=== PATIENT | male | born 1955 | race Caucasian/White ===

== ENCOUNTER 2019-10-08 13:58 | Outpatient (CLI) | payer BC, SELFPAY ==
--- NOTE | 2019-10-08 14:07 | US_ITS ---
WS: [id number] RENAL ULTRASOUND REASON FOR EXAM: CHRONIC KIDNEY DZ STAGE 3 TECHNIQUE: Grayscale and Doppler ultrasound examination of the kidneys. FINDINGS: Right kidney: Right kidney measures 9.6 cm x 5.1 cm x 6.4 cm. Cortex measured 1.2 cm. Left kidney: Left kidney measures 10.5 cm x 4.3 cm x 6.3 cm. Cortex measured 1.0 cm. Both kidneys show normal appearance with no hydronephrosis or stones. The bladder is contracted a small prostate is seen. US/US renal BI* [id number] IMPRESSION: Normal appearance of both kidneys.
== END 2019-10-08 13:59 | disposition home or self-care (01) ==
PROVIDERS: Family Provider Electrodiagnostic Medicine; PCP Electrodiagnostic Medicine; Visit Provider Internal Medicine Nephrology
DX: N18.3 Chronic kidney disease, stage 3 (moderate) (principal)
CPT/HCPCS: 76770

== ENCOUNTER → 2020-06-04 10:52 | Outpatient (BNVA) | payer BC, SELFPAY | PROVIDERS: Family Provider Electrodiagnostic Medicine; PCP Electrodiagnostic Medicine; Visit Provider Electrodiagnostic Medicine | DX: Z01.812 Encounter for preprocedural laboratory examination (principal); Z20.828 Contact with and (suspected) exposure to other viral communicable diseases | CPT/HCPCS: 87635 ==

== ENCOUNTER 2020-06-20 13:33 | Emergency (ER) | payer BC, SELFPAY ==
[2020-06-20 13:38] VITALS: BP 83/52; PULSE 93; RESP 18; TEMP 36.3; O2SAT 98; BMI 28.5
--- NOTE | 2020-06-20 13:52 | XRR_ITS ---
PROCEDURE INFORMATION: Exam: XR Chest, 1 View Exam date and time: 06/20/2020 1:54 PM Age: 65 years old Clinical indication: Dyspnea; Additional info: Hypotension TECHNIQUE: Imaging protocol: XR of the chest Views: 1 view. COMPARISON: CR Chest 1 [place] [id number] 10/04/2016 9:30 AM FINDINGS: Lungs: Unremarkable. No consolidation. Pleural space: Unremarkable. No pleural effusion. No pneumothorax. Heart/Mediastinum: Unremarkable. No cardiomegaly. Bones/joints: Unremarkable. No interval change since prior XR/XR chest 1V portable [id number] IMPRESSION: No acute findings.
--- NOTE | 2020-06-20 13:53 | ECG_ITS ---
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1955 Requested By: Larisa Collier I Order Number: [id number] Phyllis MD: KENYON MCDONALD Measurements Intervals [place] Rate: 81 P: 67 MD: 186 QRS: -85 QRSD: 106 T: 91 QT: 397 QTc: 463 Interpretive Statements SINUS RHYTHM LOW QRS VOLTAGE IN EXTREMITY LEADS [QRS DEFLECTION < 0.5 mV IN LIMB LEADS] PATTERN CONSISTENT WITH PULMONARY DISEASE Compared to ECG 10/05/2016 05:54:49 Right-axis deviation no longer present Myocardial infarct finding no longer present Electronically Signed On 06-20-2020 18:02:23 CRYSTAL GROWER by KENYON MCDONALD [email or web address].[id number]
--- NOTE | 2020-06-20 13:54 | ED_ITS ---
HPI - General Adult General: Chief complaint: General Medical Stated complaint: LOW BP Time Seen by Provider: 06/20/20 13:45 Source: patient Mode of arrival: ambulatory Limitations: no limitations History of Present Illness: HPI narrative: Patient has had hives for about 3 days, mainly in his lower extremities that are very itchy. Today he went to the urgent care for that and when he was there he had a presyncopal episode. At that time he checked his blood pressure and he was hypotensive. He was therefore sent to the emergency department to be seen. Denies any chest pain, fever, shortness of breath. But he does endorse dizziness. He denies any sick contacts. He has a history of hypertension, coronary artery disease, stent placements, diabetes. Associated symptoms: Reports rash; Deny chest pain, confusion, cough, diaphoresis, decreased appetite, dyspnea, fevers/chills, headache(s), malaise, nausea, palpitations, seizures, short of breath, syncope, vomiting or weakness Review of Systems General: Reports: 10 or more systems reviewed and unremarkable except in HPI and below Const: Denies: malaise or diaphoresis Eyes: Denies: change in vision or blurry vision ENMT: Denies: throat pain, enlarged tonsils, odynophagia, hoarseness, mouth pain or swelling of lips/tongue Card: Denies: chest pain, palpitations or syncope Resp: Denies: dyspnea GI: Denies: nausea or vomiting : Denies: flank pain, dysuria, urinary frequency, urinary urgency or urinary hesitancy Musc: Denies: neck pain, back pain or extremity swelling Skin/Breast: Reports: rash Neuro: Denies: headache(s) or confusion Endo: Denies: polyuria, polydipsia or tired all the time [facility] ED PFSH: Medical History (Updated 06/20/20 @ 19:40 by Larisa Collier MD, [facility]) CHF (congestive heart failure) History of ST elevation myocardial infarction (STEMI) HTN (hypertension) Family History Father Heart disease Sister Heart disease Social History Smoking and tobacco status: never smoked Physical Exam Const: COMMON NORMALS: no acute distress, average body habitus, patient oriented x3, no limitations, healthy appearing, alert and well nourished Neck/C-Spine: COMMON NORMALS: no meningeal signs and no JVD Resp: COMMON NORMALS: normal respiratory effort, No retractions, No use of accessory muscles, clear to auscultation bilaterally and percussion normal AUSCULTATION: clear to auscultation bilaterally PERCUSSION: percussion normal Cardio: COMMON NORMALS: no JVD, regular rate, regular rhythm, S1 normal heart sound present, S2 normal heart sound present, No gallops present (Cardio), No clicks present (Cardio), No murmurs present (Cardio), No rub (Cardio) and Peripheral pulses 2+ throughout RATE: regular rate RHYTHM: regular rhythm HEART SOUNDS: S1 normal heart sound present and S2 normal heart sound present PERIPHERAL PULSES: Peripheral pulses 2+ throughout GI: COMMON NORMALS: Normal to inspection, nondistended, normoactive bowel sounds present, Soft to palpation, non-tender, No hepatosplenomegaly present, no masses and no bruits PALPATION: Yes Soft to palpation and Yes No hepatosplenomegaly present Extremity: COMMON NORMALS: normal to inspection, full ROM, capillary refill normal, no calf tenderness and no pedal edema Neuro: COMMON NORMALS: patient oriented x3 SENSORIUM/ORIENTATION: Yes alert MENINGEAL SIGNS: Yes no meningeal signs Skin: COMMON NORMALS: no wounds, turgor normal, no jaundice, no petechiae and no mottling GENERAL SKIN EXAM: turgor normal RASHES: rashes noted Urticarial rashes in his lower extremities bilaterally. Excoriation fulton noted also. Course Reevaluation(s): Reevaluation #1: Discussed his lab and imaging findings with him. Discussed that he is VQ scan was negative for PE. Most likely his hypotension is secondary to medications including metoprolol versus valsartan hydrochlorothiazide versus isosorbide. He is advised to reduce the dose of his metoprolol all to hold it until he sees his primary care provider on Monday. They voiced understanding and they are in agreement with the plan. Current blood pressure is 135/79. Time: 19:38 Vital Signs: Vital signs: Vital Signs Temperature 97.3 F L 06/20/20 13:38 Pulse Rate 83 06/20/20 16:06 Respiratory Rate 18 06/20/20 16:06 Blood Pressure 117/76 06/20/20 19:36 Pulse Oximetry 96 06/20/20 19:36 MDM - General Adult MDM Narrative: Medical decision making narrative: 65-year-old male who was sent to the emergency department due to hypotension. The patient was indeed hypotensive, however responded to a single fluid bolus. Patient is on multiple antihypertensives which may have contributed to his symptoms. Evaluation in the emergency department was unremarkable. He has chronic kidney disease He is troponin was elevated but he had a flat delta. Patient felt much better before discharge and he is advised to hold his metoprolol until he sees his primary care provider on Monday. Medical Records: Attestation: I reviewed the patient's medical records. Lab Data: Attestation: I reviewed the patient's lab results. Labs: Lab Results 06/20/20 06/20/20 06/20/20 Range/Units 13:54 13:54 13:54 WBC 6.8 (4.0-10.0) 10^3/ uL RBC 4.02 L (4.1-5.3) 10^6/u L Hgb 12.4 (11.7-16.6) g/dL Hct 38.0 L (42.0-52.0) % MCV 94.5 H (80-94) fL MCH 30.8 (28.0-34.0) pg MCHC 32.6 (30.0-36.0) g/dL RDW 12.0 L (12.1-15.1) % Plt Count 221 (130-400) 10^3/c mm MPV 12.0 H (7.4-10.4) fL Neut % (Auto) 48.3 % Lymph % (Auto) 42.6 % Bath % (Auto) 6.3 % Eos % (Auto) 1.9 % Baso % (Auto) 0.3 % Neut # (Auto) 3.28 (1.8-7.7) 10^3/u L Lymph # (Auto) 2.9 (0.8-4.8) 10^3/u L Bath # (Auto) 0.4 (0.2-0.9) 10^3/u L Eos # (Auto) 0.1 (0.0-0.8) 10^3/u L Baso # (Auto) 0.0 (0.0-0.1) 10^3/u L Nucleated RBC % (a uto) 0 % Nucleated RBCs # 0.0 /100WBC D-Dimer (0-0.59) ug/mIFE U Sodium 130 L (136-145) mmol/L Potassium 3.5 (3.5-5.1) mmol/L Chloride 87 L (98-107) mmol/L Carbon Dioxide 23 (22-29) mmol/L Anion Gap 23.5 H (5-19) BUN 38 H (8-23) mg/dL Creatinine 3.2 H (0.7-1.2) mg/dL GFR Calculation 19.5 L (90-130) mL/min Glucose 175 H (65-115) mg/dL Calculated Osmolal ity 283 L (285-295) mOsm/k g Lactate 2.9 H (0.5-2.2) mmol/L Calcium 9.1 (8.5-10.5) mg/dL Total Bilirubin 0.2 (0.15-1.2) mg/dL AST 57 H (0-40) U/L ALT 48 H (0-41) U/L Alkaline Phosphata se 73 (40-130) IU/L Creatine Kinase 162 (39-308) U/L Troponin T Baselin e (0-15) ng/L Troponin T 120 Min tlingit & haida (0-15) ng/L Delta Troponin T (0-10) ABS# C-Reactive Protein 42.1 H (0.0-4.9) mg/L NT-Pro-B Natriuret Pep (0-125) pg/mL Total Protein 7.4 (6.6-8.7) g/dL Albumin 4.2 (3.5-5.2) g/dL Globulin 3.2 (1.3-4.6) g/dL Procalcitonin 0.20 (0-0.5) ng/mL Urine Color (Yellow) Urine Appearance (CLEAR) Urine pH (5-7) Ur Specific Gravit y (1.005-1.030) Urine Protein (Negative) Urine Glucose (UA) (Normal) Urine Ketones (Negative) Urine Blood (Negative) Urine Nitrate (Negative) Urine Bilirubin (Negative) Urine Urobilinogen (Negative) mg/dL Ur Leukocyte Taryn ase (Negative) Urine RBC (0-2) /hpf Urine WBC (0-5) /hpf Ur Squamous Epith Cells (0-5) /hpf Amorphous Sediment /hpf Urine Bacteria (NONE) /hpf Hyaline Casts /lpf Fine Granular Cast s /lpf Urine Mucus /hpf Urine Sperm /hpf 06/20/20 06/20/20 06/20/20 Range/Units 13:54 13:54 13:54 WBC (4.0-10.0) 10^3/ uL RBC (4.1-5.3) 10^6/u L Hgb (11.7-16.6) g/dL Hct (42.0-52.0) % MCV (80-94) fL MCH (28.0-34.0) pg MCHC (30.0-36.0) g/dL RDW (12.1-15.1) % Plt Count (130-400) 10^3/c mm MPV (7.4-10.4) fL Neut % (Auto) % Lymph % (Auto) % Bath % (Auto) % Eos % (Auto) % Baso % (Auto) % Neut # (Auto) (1.8-7.7) 10^3/u L Lymph # (Auto) (0.8-4.8) 10^3/u L Bath # (Auto) (0.2-0.9) 10^3/u L Eos # (Auto) (0.0-0.8) 10^3/u L Baso # (Auto) (0.0-0.1) 10^3/u L Nucleated RBC % (a uto) % Nucleated RBCs # /100WBC D-Dimer 3.81 H (0-0.59) ug/mIFE U Sodium (136-145) mmol/L Potassium (3.5-5.1) mmol/L Chloride (98-107) mmol/L Carbon Dioxide (22-29) mmol/L Anion Gap (5-19) BUN (8-23) mg/dL Creatinine (0.7-1.2) mg/dL GFR Calculation (90-130) mL/min Glucose (65-115) mg/dL Calculated Osmolal ity (285-295) mOsm/k g Lactate (0.5-2.2) mmol/L Calcium (8.5-10.5) mg/dL Total Bilirubin (0.15-1.2) mg/dL AST (0-40) U/L ALT (0-41) U/L Alkaline Phosphata se (40-130) IU/L Creatine Kinase (39-308) U/L Troponin T Baselin e 48 H (0-15) ng/L Troponin T 120 Min tling[place] & haida (0-15) ng/L Delta Troponin T (0-10) ABS# C-Reactive Protein (0.0-4.9) mg/L NT-Pro-B Natriuret Pep (0-125) pg/mL Total Protein (6.6-8.7) g/dL Albumin (3.5-5.2) g/dL Globulin (1.3-4.6) g/dL Procalcitonin (0-0.5) ng/mL Urine Color Yellow (Yellow) Urine Appearance Hazy A (CLEAR) Urine pH 5 (5-7) Ur Specific Gravit y 1.020 (1.005-1.030) Urine Protein 1+ H (Negative) Urine Glucose (UA) Norm (Normal) Urine Ketones Negative (Negative) Urine Blood Neg (Negative) Urine Nitrate Negative (Negative) Urine Bilirubin Neg (Negative) Urine Urobilinogen Norm (Negative) mg/dL Ur Leukocyte Taryn ase Negative (Negative) Urine RBC None (0-2) /hpf Urine WBC 5-10 H (0-5) /hpf Ur Squamous Epith Cells 0-4 H (0-5) /hpf Amorphous Sediment 1+ /hpf Urine Bacteria Trace (NONE) /hpf Hyaline Casts 15-25 H /lpf Fine Granular Cast s 0-4 H /lpf Urine Mucus 1+ /hpf Urine Sperm 1+ /hpf 06/20/20 06/20/20 06/20/20 Range/Units 16:00 16:00 18:30 WBC (4.0-10.0) 10^3/ uL RBC (4.1-5.3) 10^6/u L Hgb (11.7-16.6) g/dL Hct (42.0-52.0) % MCV (80-94) fL MCH (28.0-34.0) pg MCHC (30.0-36.0) g/dL RDW (12.1-15.1) % Plt Count (130-400) 10^3/c mm MPV (7.4-10.4) fL Neut % (Auto) % Lymph % (Auto) % Bath % (Auto) % Eos % (Auto) % Baso % (Auto) % Neut # (Auto) (1.8-7.7) 10^3/u L Lymph # (Auto) (0.8-4.8) 10^3/u L Bath # (Auto) (0.2-0.9) 10^3/u L Eos # (Auto) (0.0-0.8) 10^3/u L Baso # (Auto) (0.0-0.1) 10^3/u L Nucleated RBC % (a uto) % Nucleated RBCs # /100WBC D-Dimer (0-0.59) ug/mIFE U Sodium (136-145) mmol/L Potassium (3.5-5.1) mmol/L Chloride (98-107) mmol/L Carbon Dioxide (22-29) mmol/L Anion Gap (5-19) BUN (8-23) mg/dL Creatinine (0.7-1.2) mg/dL GFR Calculation (90-130) mL/min Glucose (65-115) mg/dL Calculated Osmolal ity (285-295) mOsm/k g Lactate 1.2 (0.5-2.2) mmol/L Calcium (8.5-10.5) mg/dL Total Bilirubin (0.15-1.2) mg/dL AST (0-40) U/L ALT (0-41) U/L Alkaline Phosphata se (40-130) IU/L Creatine Kinase (39-308) U/L Troponin T Baselin e (0-15) ng/L Troponin T 120 Min tling[place] & haida 43.72 H (0-15) ng/L Delta Troponin T -4.28 L (0-10) ABS# C-Reactive Protein (0.0-4.9) mg/L NT-Pro-B Natriuret Pep 156 H (0-125) pg/mL Total Protein (6.6-8.7) g/dL Albumin (3.5-5.2) g/dL Globulin (1.3-4.6) g/dL Procalcitonin (0-0.5) ng/mL Urine Color (Yellow) Urine Appearance (CLEAR) Urine pH (5-7) Ur Specific Gravit y (1.005-1.030) Urine Protein (Negative) Urine Glucose (UA) (Normal) Urine Ketones (Negative) Urine Blood (Negative) Urine Nitrate (Negative) Urine Bilirubin (Negative) Urine Urobilinogen (Negative) mg/dL Ur Leukocyte Taryn ase (Negative) Urine RBC (0-2) /hpf Urine WBC (0-5) /hpf Ur Squamous Epith Cells (0-5) /hpf Amorphous Sediment /hpf Urine Bacteria (NONE) /hpf Hyaline Casts /lpf Fine Granular Cast s /lpf Urine Mucus /hpf Urine Sperm /hpf Imaging Data^: CXR: Attestation: I personally reviewed and interpreted this imaging study as follows: Radiologist's impression: [address] [address] XRay Report Signed Patient: Lyle Biswas #: [id number] : 4Acct#:[id number] Age/Sex: 65 / MADM Date: 06/20/20 Loc: ERRoom/Bed: Attending Dr: Ordering Provider/Ordering MD: Larisa Collier MD, [facility] Date of Service: 06/20/20 Procedure(s): XR chest 1V portable [id number] Accession Number(s): [id number] Report Number: [id number] PROCEDURE INFORMATION: Exam: XR Chest, 1 View Exam date and time: 06/20/2020 1:54 PM Age: 65 years old Clinical indication: Dyspnea; Additional info: Hypotension TECHNIQUE: Imaging protocol: XR of the chest Views: 1 view. COMPARISON: CR Chest 1 [place] [id number] 10/04/2016 9:30 AM FINDINGS: Lungs: Unremarkable. No consolidation. Pleural space: Unremarkable. No pleural effusion. No pneumothorax. Heart/Mediastinum: Unremarkable. No cardiomegaly. Bones/joints: Unremarkable. No interval change since prior XR/XR chest 1V portable [id number] IMPRESSION: No acute findings. Dictated By:Vahid Vaz Signed By:Kevin Vaz Date/Time:06/20/20 1528 DD/ 1526 Other Imaging: Radiologist's impression: [address] [place] [address] Nuclear Medicine Report Signed Patient: Lyle Biswas #: [id number] : 4Acct#:[id number] Age/Sex: 65 / MADM Date: 06/20/20 Loc: ERRoom/Bed: Attending Dr: Ordering Provider/Ordering MD: Larisa Collier MD, [facility] Date of Service: 06/20/20 Procedure(s): NM pul vent and perfus* [id number] Accession Number(s): [id number] Report Number: [id number] PROCEDURE INFORMATION: Exam: NM Lung Ventilation and Perfusion Imaging Exam date and time: 06/20/2020 6:35 PM Age: 65 years old Clinical indication: Shortness of breath; Patient HX: SOB, syncope; Additional info: SOB, hypotension TECHNIQUE: Imaging protocol: Nuclear pulmonary ventilation with aerosol or gas was performed followed by perfusion. Views: Ventilation acquired with multiple projections. Perfusion acquired with multiple projections. Radiopharmaceutical: 32 mCi DTPA Aersol (Tc-99m DTPA), Inhalation. 5.1 mCi Tc-99m MAA, IV. COMPARISON: CR (CHEST, ) 06/20/2020 2:02 PM FINDINGS: Ventilation: There some central aggregation of the radiotracer. No ventilation defects. Perfusion: Normal. No perfusion defects. NM/NM pul vent and perfus* [id number] IMPRESSION: Normal perfusion. No evidence of pulmonary embolism. Dictated By:Amada Camacho MD Signed By:Amada Camacho MDSigned Date/Time:06/20/201931 DD/ 29 EKG Data^: EKG 1: Attestation: I personally reviewed and interpreted this EKG as follows: EKG interpretation date: 06/20/20 EKG interpretation time: 14:34 Prior EKG tracings: not available for review Interpretation: Sinus rhythm. Heart rate [address] changes. Pattern consistent with pulmonary disease Computer generated interpretation: Chest X-Ray 06/20/20 13:52 IMPRESSION: No acute findings. Pulmonary Perfusion Imaging 06/20/20 18:13 IMPRESSION: Normal perfusion. No evidence of pulmonary embolism. EKG 2: Attestation: I personally reviewed and interpreted this EKG as follows: EKG interpretation date: 06/20/20 EKG interpretation time: 16:03 Prior EKG tracings: available for review Interpretation: Sinus rhythm. Heart rate 83 bpm. Pattern consistent pulmonary disease. Unchanged from earlier today. Computer generated interpretation: Chest X-Ray 06/20/20 13:52 IMPRESSION: No acute findings. Pulmonary Perfusion Imaging 06/20/20 18:13 IMPRESSION: Normal perfusion. No evidence of pulmonary embolism. Discharge Plan Discharge Patient Disposition: Home Clinical Impression: Acute hypotension Condition: Stable Prescriptions: Continued isosorbide mononitrate 30 mg tablet extended release 24 hr 30 mg PO BID Qty: 180 RF: 3 furosemide 40 mg tablet 40 mg PO DAILY Qty: 90 RF: 3 aspirin [Adult Low Dose Aspirin] 81 mg tablet,delayed release (DR/EC) 81 mg PO DAILY RF: 0 escitalopram oxalate [Lexapro] 10 mg tablet 10 mg PO DAILY RF: 0 metformin 1,000 mg tablet extended release 24hr 1,000 mg PO BID RF: 0 albuterol sulfate 90 mcg/actuation HFA aerosol inhaler 2 puff INHALATION Q6H PRN (Reason: Shortness Of Breath) RF: 0 clonazepam 0.5 mg tablet 0.5 mg PO BID RF: 0 clopidogrel 75 mg tablet 75 mg PO DAILY RF: 0 glimepiride 2 mg tablet 2 mg PO DAILY RF: 0 imipramine HCl 50 mg tablet 50 mg PO BID RF: 0 levothyroxine 75 mcg capsule 75 mcg PO DAILY RF: 0 montelukast 10 mg tablet 10 mg PO DAILY RF: 0 simvastatin 40 mg tablet 40 mg PO DAILY RF: 0 venlafaxine 75 mg tablet 75 mg PO DAILY RF: 0 valsartan-hydrochlorothiazide 320-25 mg tablet 0.5 tab PO DAILY Qty: 15 RF: 3 clindamycin HCl 300 mg Capsule 300 mg PO TID RF: 0 ergocalciferol (vitamin D2) 50,000 unit Tablet See Rx Instructions .ROUTE .COMPLEX RF: 0 Trulicity 0.75 mg/0.5 mL Pen Injector 0.75 mg SUBCUT Q7D RF: 0 Held metoprolol tartrate 50 mg tablet 75 mg PO BID Qty: 270 RF: 3 Hold Instructions: Hold until you see your primary care provider Discharge Orders: Discharge Order (Routine); Ordered 06/20/20 Ordered By: Larisa Collier Referrals: Kenyon Ramírez DO [Primary Care Provider] - 1-3 days Discharge Diet: Usual diet Discharge Activity: Increase activity as tolerated Patient Instructions: Hypotension (ED) Activity Restrictions/Additional Instructions: Return for any new or worsening symptoms. Follow-up with your primary care provider on Monday as you may need adjustment of your medicines. Hold your metoprolol until you see your doctor on Monday. Continue your other medications. Coding Level of Care Code ED Route Sales Representative for Chg Fwd Exam Detailed
[2020-06-20] MEDS: sodium chloride 0.9% 1,000 ML 999 ML IV (14:04)
[2020-06-20] MEDS: diphenhydrAMINE 50 mg/mL SDV 1mL 25 MG IVP (14:04)
[2020-06-20] MEDS: famotidine 20 mg/2 mL INJ IVP (14:04)
[2020-06-20 14:24] LABS: Basophils % 0.3 %; Eosinophils # 0.1 10^3/uL (0.0-0.8); Eosinophils % 1.9 %; Hemoglobin 12.4 g/dL (11.7-16.6); Lymphocytes # 2.9 10^3/uL (0.8-4.8); Lymphocytes % 42.6 %; Mean Corpuscular HGB Conc 32.6 g/dL (30.0-36.0); Mean Corpuscular Hemoglobin 30.8 pg (28.0-34.0); Mean Corpuscular Volume 94.5 fL (80-94); Monocytes # 0.4 10^3/uL (0.2-0.9); Monocytes % 6.3 %; Neutrophils # 3.28 10^3/uL (1.8-7.7); Neutrophils % 48.3 %; Nucleated Red Blood Cells % 0 %; Platelet Count 221 10^3/cmm (130-400); Red Blood Count 4.02 10^6/uL (4.1-5.3); White Blood Count 6.8 10^3/uL (4.0-10.0)
[2020-06-20 14:55] LABS: Urine Appearance Hazy (CLEAR); Urine Color Yellow (Yellow)
[2020-06-20 14:56] LABS: Add Urine Microscopic? YES; Bilirubin Urine Neg (Negative); Blood Urine Neg (Negative); Glucose Urine UA Norm (Normal); Ketones Urine Negative (Negative); Leukocyte Esterase Urine Negative (Negative); Nitrate Urine Negative (Negative); Protein Urine 1+ (Negative); Urobilinogen Urine Norm (Negative); pH Urine 5 (5-7)
[2020-06-20 14:57] LABS: Lactate (Lactic Acid level) 2.9 mmol/L (0.5-2.2); Troponin(5th) Baseline 48 ng/L (0-15)
[2020-06-20 14:58] LABS: Amorphous Sediment Urine 1+ /hpf; Bacteria Urine TRACE /hpf; Fine Granular Casts Urine 0-4 /lpf; Hyaline Casts Urine 15-25 /lpf; Mucus Urine 1+ /hpf; Sperm Urine 1+ /hpf; Squamous Epithelial Cell Urine 0-4 /hpf (0-5)
[2020-06-20 15:00] LABS: Add Urine Culture? No
[2020-06-20 15:13] LABS: Alanine Aminotransferase 48 U/L (0-41); Albumin Level 4.2 g/dL (3.5-5.2); Alkaline Phosphatase 73 IU/L (40-130); Anion Gap 23.5 (5-19); Aspartate Amino Transferase 57 U/L (0-40); Blood Urea Nitrogen 38 mg/dL (8-23); C Reactive Protein 42.1 mg/L (0.0-4.9); Calcium 9.1 mg/dL (8.5-10.5); Carbon Dioxide 23 mmol/L (22-29); Chloride 87 mmol/L (98-107); Creatine Phosphokinase 162 U/L (39-308); Globulin 3.2 g/dL (1.3-4.6); Glomerular Filtration Rate 19.5 mL/min (90-130); Glucose 175 mg/dL (65-115); Osmolality Calculated 283 mOsm/kg (285-295); Potassium 3.5 mmol/L (3.5-5.1); Sodium 130 mmol/L (136-145); Total Bilirubin 0.2 mg/dL (0.15-1.2); Total Protein 7.4 g/dL (6.6-8.7)
--- NOTE | 2020-06-20 15:53 | ECG_ITS ---
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1955 Requested By: Larisa Collier I Order Number: [id number] Reading MD: KENYON MCDONALD Measurements Intervals [place] Rate: 83 P: 71 DE: 184 QRS: -87 QRSD: 101 T: 93 QT: 391 QTc: 462 Interpretive Statements SINUS RHYTHM LOW QRS VOLTAGE IN EXTREMITY LEADS [QRS DEFLECTION < 0.5 mV IN LIMB LEADS] PATTERN CONSISTENT WITH PULMONARY DISEASE Compared to ECG 06/20/2020 14:34:21 No significant changes Electronically Signed On 06-20-2020 18:14:23 SWATCH CLERK by KENYON MCDONALD [id number]
--- NOTE | 2020-06-20 16:04 | PC.NURSE ---
2hr EKG done, shown to physician. 2hr troponin drawn, labeled and sent to lab.
[2020-06-20 16:06] VITALS: BP 99/63; PULSE 83; RESP 18; O2SAT 99
[2020-06-20 16:58] LABS: Troponin 5 2HR 43.72 ng/L (0-15)
[2020-06-20 17:07] VITALS: BP 95/62; O2SAT 95
[2020-06-20 17:15] LABS: Troponin 5 2HR Delta -4.28 ABS# (0-10)
[2020-06-20 18:03] LABS: D Dimer 3.81 ug/mIFEU (0-0.59)
--- NOTE | 2020-06-20 18:13 | NMR_ITS ---
PROCEDURE INFORMATION: Exam: MA Lung Ventilation and Perfusion Imaging Exam date and time: 06/20/2020 6:35 PM Age: 65 years old Clinical indication: Shortness of breath; Patient HX: SOB, syncope; Additional info: SOB, hypotension TECHNIQUE: Imaging protocol: Nuclear pulmonary ventilation with aerosol or gas was performed followed by perfusion. Views: Ventilation acquired with multiple projections. Perfusion acquired with multiple projections. Radiopharmaceutical: 32 mCi DTPA Aersol (Tc-99m DTPA), Inhalation. 5.1 mCi Tc-99m MAA, IV. COMPARISON: CR (CHEST, ) 06/20/2020 2:02 PM FINDINGS: Ventilation: There some central aggregation of the radiotracer. No ventilation defects. Perfusion: Normal. No perfusion defects. MA/MA pul vent and perfus* [id number] IMPRESSION: Normal perfusion. No evidence of pulmonary embolism.
[2020-06-20 18:31] LABS: NT Pro B Type Natriuretic Pept 156 pg/mL (0-125)
[2020-06-20 18:58] LABS: Lactate (Lactic Acid level) 1.2 mmol/L (0.5-2.2)
[2020-06-20 19:36] VITALS: BP 117/76; O2SAT 96
== END 2020-06-20 19:50 | disposition home or self-care (01) ==
PROVIDERS: Emergency Provider Family Medicine; PCP Electrodiagnostic Medicine
DX: I95.9 Hypotension, unspecified (principal); Z79.82 Long term (current) use of aspirin; Z79.02 Long term (current) use of antithrombotics/antiplatelets; I11.0 Hypertensive heart disease with heart failure; I50.9 Heart failure, unspecified; I25.2 Old myocardial infarction
CPT/HCPCS: 12345; 36415; 71045; 78014; 80053; 81001; 82550; 83605; 83880; 84145; 84484; 85025; 85378; 86140; 93005; 96361; 96374; 96375; 99283; 99284; A9540; A9567; J1200; J3490; J7030

== ENCOUNTER 2022-01-19 22:18 | Emergency (ER) | payer BC, SELFPAY ==
[2022-01-19 22:51] VITALS: BP 95/62; PULSE 82; RESP 18; TEMP 37.8; O2SAT 96
--- NOTE | 2022-01-19 23:02 | XRR_ITS ---
PROCEDURE INFORMATION: Exam: XR Chest Exam date and time: 01/19/2022 11:53 PM Age: 66 years old Clinical indication: Fever TECHNIQUE: Imaging protocol: Radiologic exam of the chest. Views: 1 view. COMPARISON: CR XR chest 1V portable [id number] 06/20/2020 2:02 PM FINDINGS: Lungs: Unremarkable. No consolidation. Small lateral right upper lobe granuloma stable from prior. Pleural spaces: Unremarkable. No pleural effusion. No pneumothorax. Heart/Mediastinum: Unremarkable. No cardiomegaly. Bones/joints: Unremarkable. Soft tissues: Left axilla surgical clips. XR/XR chest 1V portable [id number] IMPRESSION: No acute findings.
[2022-01-19 23:23] LABS: Basophils % 0.5 %; Eosinophils % 0.5 %; Lymphocytes # 1.6 10^3/uL (0.8-4.8); Lymphocytes % 26.3 %; Mean Corpuscular HGB Conc 35.3 g/dL (30.0-36.0); Mean Corpuscular Hemoglobin 30.2 pg (28.0-34.0); Mean Corpuscular Volume 85.4 fl (80-94); Mean Platelet Volume 11.1 fL (7.4-10.4); Monocytes # 0.5 10^3/uL (0.2-0.9); Neutrophils # 3.79 10^3/uL (1.8-7.7); Neutrophils % 64.2 %; Nucleated Red Blood Cells % 0 %; Platelet Count 141 10^3/cmm (130-400); Red Blood Count 3.98 10^6/uL (4.1-5.3); Red Cell Distribution Width 12.8 % (12.1-15.1); White Blood Count 5.9 10^3/uL (4.0-10.0)
[2022-01-19 23:35] LABS: Alanine Aminotransferase 19 U/L (0-41); Albumin Level 3.8 g/dL (3.5-5.2); Alkaline Phosphatase 94 IU/L (40-130); Aspartate Amino Transferase 26 U/L (0-40); Blood Urea Nitrogen 12 mg/dL (8-23); Calcium 8.7 mg/dL (8.5-10.5); Carbon Dioxide 23 mmol/L (22-29); Chloride 94 mmol/L (98-107); Globulin 3.5 g/dL (1.3-4.6); Glomerular Filtration Rate 35.5 mL/min (90-130); Glucose 191 mg/dL (65-115); Osmolality Calculated 275 mOsm/kg (285-295); Sodium 130 mmol/L (136-145); Total Bilirubin 0.4 mg/dL (0.15-1.2); Total Protein 7.3 g/dL (6.6-8.7)
--- NOTE | 2022-01-19 23:38 | ED_ITS ---
HPI - Weakness General: Chief complaint: Weakness Stated complaint: fever,weakness Time Seen by Provider: 01/19/22 23:26 History of Present Illness: 66-year-old male patient comes in today with complaints of generalized weakness. Spouse also is concerned that patient seemed more confused today. Patient has a history of fever for the last week with some upper respiratory symptoms. Patient states that he just feels really weak but does not appear in any acute distress. Patient appears mildly unwell but not toxic. Patient appears in no pain. Associated symptoms: Reports fever(s); Denies chest pain, nausea or vomiting Review of Systems General: Reports: 10 or more systems reviewed and unremarkable except in HPI and below Const: Reports: fever(s) Eyes: Denies: change in vision ENMT: Denies: throat pain Card: Denies: chest pain Resp: Denies: dyspnea GI: Denies: nausea or vomiting : Denies: difficulty urinating Musc: Denies: neck pain or back pain Skin/Breast: Denies: rash PFSH ED PFSH: Medical History (Updated 01/20/22 @ 01:40 by DENNIS Patel) CHF (congestive heart failure) History of ST elevation myocardial infarction (STEMI) HTN (hypertension) Viral labyrinthitis syndrome Family History Father Heart disease Sister Heart disease Social History Smoking and tobacco status: never smoked Physical Exam Const: COMMON NORMALS: alert HENMT: COMMON NORMALS: normocephalic HEAD & SCALP: normocephalic MOUTH: Normal oral and palatal mucosa present THROAT: posterior oropharynx normal Eye: GENERAL EYE: appearance normal, both eyes and all related structures Neck/C-Spine: COMMON NORMALS: full ROM Resp: COMMON NORMALS: normal respiratory effort and clear to auscultation bilaterally AUSCULTATION: clear to auscultation bilaterally Cardio: COMMON NORMALS: regular rate and regular rhythm RATE: regular rate RHYTHM: regular rhythm GI: COMMON NORMALS: Soft to palpation and non-tender PALPATION: Yes Soft to palpation Extremity: COMMON NORMALS: normal to inspection Neuro: SENSORIUM/ORIENTATION: Yes alert Psych: COMMON NORMALS: cooperative Skin: COMMON NORMALS: no rashes or lesions noted GENERAL SKIN EXAM: no rashes or lesions noted Course Vital Signs: Vital signs: Vital Signs Temperature 100.1 F H 01/19/22 22:51 Pulse Rate 82 01/19/22 22:51 Respiratory Rate 18 01/19/22 22:51 Blood Pressure 95/62 01/19/22 22:51 Pulse Oximetry 96 01/19/22 22:51 MDM - Weakness Medical Decision Making Patient comes in today for complaints of malaise for about 1 week with fever. Patient appears mildly unwell but not toxic. Patient and spouse both report that he has had a poor appetite. Patient was seen at the physician's office and diagnosed with a viral syndrome and placed on some meclizine. Lungs were clear to auscultation. Skin was warm and dry. 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 Differential diagnosis includes but not limited to COVID-19, tick borne illness, hyperglycemia and diabetes, electrolyte imbalance. Laboratory values noted a in significant CBC. CMP did have a potassium of 3.0, and a sodium 130. Patient's creatinine was 1.9. Liver enzymes were unremarkable. Urinalysis was unremarkable. Chest x-ray showed no abnormalities. COVID-19 antigen test was negative. I still have a strong suspicion for COVID-19 although ahead and send a PCR test. 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 Patient be placed on doxycycline to cover tickborne illness. I encourage plenty of fluids. And follow-up with primary care or return to the ER for worsening symptoms. Lab Data : 01/19/22 23:08 01/19/22 23:08 Radiology Impressions Chest X-Ray 01/19/22 23:02 IMPRESSION: No acute findings. Laboratory Results WBC 5.9 10^3/uL (4.0-10.0) 01/19/22 23:08 RBC 3.98 10^6/uL (4.1-5.3) L 01/19/22 23:08 Hgb 12.0 g/dL (11.7-16.6) 01/19/22 23:08 Hct 34.0 % (42.0-52.0) L 01/19/22 23:08 MCV 85.4 fl (80-94) 01/19/22 23:08 MCH 30.2 pg (28.0-34.0) 01/19/22 23:08 MCHC 35.3 g/dL (30.0-36.0) 01/19/22 23:08 RDW 12.8 % (12.1-15.1) 01/19/22 23:08 Plt Count 141 10^3/cmm (130-400) 01/19/22 23:08 MPV 11.1 fL (7.4-10.4) H 01/19/22 23:08 Neut % (Auto) 64.2 % 01/19/22 23:08 Lymph % (Auto) 26.3 % 01/19/22 23:08 [place] % (Auto) 8.0 % 01/19/22 23:08 Eos % (Auto) 0.5 % 01/19/22 23:08 Baso % (Auto) 0.5 % 01/19/22 23:08 Neut # (Auto) 3.79 10^3/uL (1.8-7.7) 01/19/22 23:08 Lymph # (Auto) 1.6 10^3/uL (0.8-4.8) 01/19/22 23:08 [place] # (Auto) 0.5 10^3/uL (0.2-0.9) 01/19/22 23:08 Eos # (Auto) 0.0 10^3/uL (0.0-0.8) 01/19/22 23:08 Baso # (Auto) 0.0 10^3/uL (0.0-0.1) 01/19/22 23:08 Nucleated RBC % (auto) 0 % 01/19/22 23:08 Nucleated RBCs # 0.0 /100WBC 01/19/22 23:08 Sodium 130 mmol/L (136-145) L 01/19/22 23:08 Potassium 3.0 mmol/L (3.5-5.1) L 01/19/22 23:08 Chloride 94 mmol/L (98-107) L 01/19/22 23:08 Carbon Dioxide 23 mmol/L (22-29) 01/19/22 23:08 Anion Gap 16.0 (5-19) 01/19/22 23:08 BUN 12 mg/dL (8-23) 01/19/22 23:08 Creatinine 1.9 mg/dL (0.7-1.2) H 01/19/22 23:08 GFR Calculation 35.5 mL/min (90-130) L 01/19/22 23:08 Glucose 191 mg/dL (65-115) H 01/19/22 23:08 Calculated Osmolality 275 mOsm/kg (285-295) L 01/19/22 23:08 Calcium 8.7 mg/dL (8.5-10.5) 01/19/22 23:08 Total Bilirubin 0.4 mg/dL (0.15-1.2) 01/19/22 23:08 AST 26 U/L (0-40) 01/19/22 23:08 ALT 19 U/L (0-41) 01/19/22 23:08 Alkaline Phosphatase 94 IU/L (40-130) 01/19/22 23:08 Total Protein 7.3 g/dL (6.6-8.7) 01/19/22 23:08 Albumin 3.8 g/dL (3.5-5.2) 01/19/22 23:08 Globulin 3.5 g/dL (1.3-4.6) 01/19/22 23:08 Urine Color Yellow (Yellow) 01/20/22 00:50 Urine Appearance Clear (CLEAR) 01/20/22 00:50 Urine pH 5 (5-7) 01/20/22 00:50 Ur Specific [place] 1.020 (1.005-1.030) 01/20/22 00:50 Urine Protein 1+ (Negative) H 01/20/22 00:50 Urine Glucose (UA) Norm (Normal) 01/20/22 00:50 Urine Ketones Negative (Negative) 01/20/22 00:50 Urine Blood Neg (Negative) 01/20/22 00:50 Urine Nitrate Negative (Negative) 01/20/22 00:50 Urine Bilirubin Neg (Negative) 01/20/22 00:50 Urine Urobilinogen Norm mg/dL (Negative) 01/20/22 00:50 Ur Leukocyte Esterase Negative (Negative) 01/20/22 00:50 Urine RBC 0-4 /hpf (0-2) H 01/20/22 00:50 Urine WBC 0-4 /hpf (0-5) H 01/20/22 00:50 Ur Squamous Epith Cells 0-4 /hpf (0-5) H 01/20/22 00:50 Amorphous Sediment 1+ /hpf 01/20/22 00:50 Urine Bacteria Trace /hpf (NONE) 01/20/22 00:50 Urine Mucus Trace /hpf 01/20/22 00:50 SARS-CoV-2 Ag (Rapid) Negative (Negative) 01/20/22 00:50 Discharge Plan Discharge Patient Disposition: Home Clinical Impression: Acute febrile illness Condition: Stable Prescriptions: New doxycycline monohydrate 100 mg capsule 100 mg PO BID 10 Days Qty: 20 0RF No Action aspirin [Adult Low Dose Aspirin] 81 mg tablet,delayed release (DR/EC) 81 mg PO DAILY 0RF escitalopram oxalate [Lexapro] 10 mg tablet 10 mg PO DAILY 0RF albuterol sulfate 90 mcg/actuation HFA aerosol inhaler 2 puff INHALATION Q6H PRN (Reason: Shortness Of Breath) 0RF clonazepam 0.5 mg tablet 0.5 mg PO BID 0RF clopidogrel 75 mg tablet 75 mg PO DAILY 0RF glimepiride 2 mg tablet 2 mg PO DAILY 0RF levothyroxine 75 mcg capsule 75 mcg PO DAILY 0RF montelukast 10 mg tablet 10 mg PO DAILY 0RF simvastatin 40 mg tablet 40 mg PO DAILY 0RF venlafaxine 75 mg tablet 75 mg PO DAILY 0RF imipramine HCl 50 mg tablet 50 mg PO DAILY 0RF allopurinol 100 mg tablet 100 mg PO DAILY 0RF amlodipine 2.5 mg tablet 2.5 mg PO DAILY 0RF meclizine [Medi-Meclizine] 25 mg tablet 25 mg PO .q6 PRN (Reason: dizziness) Qty: 20 0RF furosemide 40 mg tablet 40 mg PO DAILY Qty: 90 3RF metoprolol tartrate 50 mg tablet 75 mg PO BID Qty: 270 3RF Hold Instructions: Hold until you see your primary care provider Rx Instructions: (prescribed as 75mg BID-pt takes 25mg in the morning & 50mg in the evening) ergocalciferol (vitamin D2) 50,000 unit Tablet See Rx Instructions .ROUTE .COMPLEX 0RF Rx Instructions: 50,000 unit orally 2 times weekly - pt states he has only taken one dose Discharge Orders: Discharge ED (Routine); Ordered 01/20/22 Ordered By: Donny Young Referrals: Kenyon Ramírez DO [Primary Care Provider] - Discharge Diet: Usual diet Discharge Activity: Increase activity as tolerated Patient Instructions: Viral Syndrome (ED) Activity Restrictions/Additional Instructions: Continue with routine medications. Use acetaminophen as needed for pain and fever. Drink plenty of water. Follow-up with primary care in 3 to 5 days for recheck. Return to ER for shortness of breath, persistent fever, chest pain, or blood in vomit or stool. Coding Level of Care Code ED [employer] Supervisor for Hiltong Fwd Exam Comprehensive
[2022-01-19] MEDS: potassium chloride ER 20 mEq Tablet 40 MEQ PO (23:56)
[2022-01-19] MEDS: sodium chloride 0.9% 1,000 ML 999 ML IV (23:56)
[2022-01-20 01:15] LABS: Add Urine Culture? No; Add Urine Microscopic? YES; Amorphous Sediment Urine 1+ /hpf; Bacteria Urine TRACE /hpf; Bilirubin Urine Neg (Negative); Blood Urine Neg (Negative); Glucose Urine UA Norm (Normal); Ketones Urine Negative (Negative); Leukocyte Esterase Urine Negative (Negative); Mucus Urine TRACE /hpf; Nitrate Urine Negative (Negative); Protein Urine 1+ (Negative); RBC Urine 0-4 /hpf (0-2); Squamous Epithelial Cell Urine 0-4 /hpf (0-5); Urine Appearance Clear (CLEAR); Urine Color Yellow (Yellow); Urobilinogen Urine Norm (Negative); WBC Urine 0-4 /hpf (0-5); pH Urine 5 (5-7)
[2022-01-20 01:21] LABS: SARS Covid-2 Antigen Negative (Negative)
[2022-01-20 03:45] LABS: Adenovirus Not Detected (NOT DETECT); Chlamydia Pneumoniae Not Detected (NOT DETECT); Coronavirus 229E,HKU1,NL63,OC4 Not Detected (NOT DETECT); Human Metapneumovirus Not Detected (NOT DETECT); Human Rhinovirus/Enterovirus Not Detected (NOT DETECT); Influenza A Not Detected (NOT DETECT); Influenza A H1 Not Detected (NOT DETECT); Influenza A H1-2009 Not Detected (NOT DETECT); Influenza A H3 Not Detected (NOT DETECT); Influenza B Not Detected (NOT DETECT); Mycoplasma Pneumoniae Not Detected (NOT DETECT); Parainfluenza Virus Type 1 Not Detected (NOT DETECT); Parainfluenza Virus Type 2 Not Detected (NOT DETECT); Parainfluenza Virus Type 3 Not Detected (NOT DETECT); Parainfluenza Virus Type 4 Not Detected (NOT DETECT); Respiratory Syncytial Virus A Not Detected (NOT DETECT); Respiratory Syncytial Virus B Not Detected (NOT DETECT); SARS-COV-2 Not Detected (NOT DETECT)
[2022-01-21 13:53] LABS: Lyme AB Screen <0.90 index
[2022-01-25 18:09] LABS: RMSF IGG NOT DETECTED; RMSF IGM NOT DETECTED
[2022-01-30 17:48] LABS: E. Chaffeensis AB IGM <1:20; Interpretation PAST INFECTION
== END 2022-01-20 01:59 | disposition home or self-care (01) ==
PROVIDERS: Emergency Provider Nurse Practitioner Family; PCP Electrodiagnostic Medicine
DX: R50.9 Fever, unspecified (principal); Z79.82 Long term (current) use of aspirin; Z79.02 Long term (current) use of antithrombotics/antiplatelets; I11.0 Hypertensive heart disease with heart failure; I50.9 Heart failure, unspecified; I25.2 Old myocardial infarction; Z20.822 Contact with and (suspected) exposure to COVID-19
CPT/HCPCS: 71045; 80053; 81001; 85025; 86618; 86666; 86757; 87040; 87426; 87635; 96360; 99284; J7030

== ENCOUNTER 2022-04-07 06:00 | Outpatient (RCR) | payer BC, SELFPAY | END 2022-04-22 23:59 | disposition home or self-care (01) | LOC: SPO 06:00 | PROVIDERS: PCP Electrodiagnostic Medicine; Visit Provider Internal Medicine | DX: G04.81 Other encephalitis and encephalomyelitis (principal); G93.49 Other encephalopathy; Z74.09 Other reduced mobility; R48.2 Apraxia | CPT/HCPCS: 97110; 97161; 97166; 97530 ==

== ENCOUNTER 2022-04-19 09:49 | Outpatient (RCR) | payer BC, SELFPAY ==
[2022-03-29 09:54] VITALS: BP 117/74; PULSE 79; RESP 18; TEMP 35.8; O2SAT 93
[2022-04-05 10:41] VITALS: BP 119/79; PULSE 68; RESP 18; TEMP 36.5; O2SAT 99
[2022-04-12 10:12] VITALS: BP 116/67; PULSE 79; RESP 18; TEMP 36.4; O2SAT 97
[2022-04-19 10:31] VITALS: BP 125/77; PULSE 70; RESP 18; TEMP 36.2; O2SAT 99
== END 2022-04-22 23:59 | disposition home or self-care (01) ==
LOC: GILAB 09:49
PROVIDERS: PCP Electrodiagnostic Medicine; Visit Provider Nurse Practitioner
DX: G04.81 Other encephalitis and encephalomyelitis (principal)
CPT/HCPCS: 96365; J2930; J7050

== ENCOUNTER 2022-04-23 06:00 | Outpatient (RCR) | payer BC, SELFPAY | END 2022-05-23 23:59 | disposition home or self-care (01) | LOC: SPO 06:00 | PROVIDERS: PCP Electrodiagnostic Medicine; Visit Provider Internal Medicine | DX: G04.81 Other encephalitis and encephalomyelitis (principal); G93.40 Encephalopathy, unspecified; Z74.09 Other reduced mobility; R48.2 Apraxia | CPT/HCPCS: 97110 ==

== ENCOUNTER 2022-05-10 10:40 | Outpatient (RCR) | payer BC, SELFPAY ==
[2022-04-27 08:31] VITALS: BP 139/85; PULSE 86; RESP 18; TEMP 36.1; O2SAT 99
[2022-05-10 11:04] VITALS: BP 124/78; PULSE 81; RESP 18; TEMP 36.1; O2SAT 100
== END 2022-05-23 23:59 | disposition home or self-care (01) ==
LOC: GILAB 10:40
PROVIDERS: PCP Electrodiagnostic Medicine; Visit Provider Nurse Practitioner
DX: G04.81 Other encephalitis and encephalomyelitis (principal)
CPT/HCPCS: 96365; J2930; J7050

== ENCOUNTER 2022-06-21 10:20 | Outpatient (RCR) | payer BC, SELFPAY ==
[2022-05-24 11:28] VITALS: BP 162/101; PULSE 76; RESP 18; TEMP 36.2; O2SAT 99
[2022-06-07 11:00] VITALS: BP 156/102; PULSE 80; RESP 18; TEMP 36.3; O2SAT 98
[2022-06-21 11:14] VITALS: BP 147/83; PULSE 79; RESP 18; TEMP 36.6; O2SAT 98
== END 2022-06-22 23:59 | disposition home or self-care (01) ==
LOC: GILAB 10:20
PROVIDERS: PCP Electrodiagnostic Medicine; Visit Provider Nurse Practitioner
DX: G04.81 Other encephalitis and encephalomyelitis (principal)
CPT/HCPCS: 96365; J2930; J7050

== ENCOUNTER 2022-07-05 10:18 | Outpatient (RCR) | payer BC, SELFPAY ==
[2022-07-05 11:03] VITALS: BP 128/81; PULSE 90; RESP 18; TEMP 36.4; O2SAT 97
== END 2022-07-23 23:59 | disposition home or self-care (01) ==
LOC: GILAB 10:18
PROVIDERS: PCP Electrodiagnostic Medicine; Visit Provider Nurse Practitioner
DX: G04.81 Other encephalitis and encephalomyelitis (principal)
CPT/HCPCS: 96365; J2930; J7050

== ENCOUNTER 2022-07-14 10:56 | Emergency (ER) | payer BC, SELFPAY ==
[2022-07-14 11:08] VITALS: BP 116/80; PULSE 93; RESP 16; TEMP 36.4; O2SAT 96; BMI 27.9
--- NOTE | 2022-07-14 11:15 | ECG_ITS ---
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 Measurements Intervals [place] Rate: 86 P: 58 MN: 166 QRS: -85 QRSD: 130 T: 90 QT: 395 QTc: 475 Interpretive Statements SINUS RHYTHM WITH SINUS ARRHYTHMIA LATERAL MYOCARDIAL INFARCTION , OF INDETERMINATE AGE [40+ ms Q WAVE AND/OR ST/T ABNORMALITY IN I/aVL/V5/V6] Compared to ECG 06/20/2020 16:03:33 Myocardial infarct finding now present Electronically Signed On 07-14-2022 12:56:35 WINDOW CUTTER by Roberto Jay M.D. [id number]
[2022-07-14 11:25] LABS: Glucose Point of Care 481 mg/dL (70-110)
--- NOTE | 2022-07-14 11:25 | PC.NURSE ---
EKG in triage completed and taken to Dr. Hawley
== END 2022-07-14 14:11 | disposition left against medical advice (07) ==
PROVIDERS: Emergency Provider Family Medicine; PCP Electrodiagnostic Medicine
DX: Z53.21 Procedure and treatment not carried out due to patient leaving prior to being seen by health care provider (principal)
CPT/HCPCS: 36416; 82962; 93005

== ENCOUNTER → 2024-08-06 17:18 | Outpatient (BNVA) | payer BC, SELFPAY | PROVIDERS: PCP Electrodiagnostic Medicine; Visit Provider Internal Medicine Cardiovascular Disease | DX: I10 Essential (primary) hypertension (principal); I50.32 Chronic diastolic (congestive) heart failure | CPT/HCPCS: 36415; 80048; 85025 ==

== ENCOUNTER 2024-09-03 07:26 | Outpatient (CLI) | payer BC, SELFPAY ==
--- NOTE | 2024-09-03 | ECG_ITS ---
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 Interpretive Statements Lung unchanged pre/post procedure; Intraprocedure shortess of breath; Symptoms resoled by discharge PROCEDURE: The baseline electrocardiogram showed sinus tachycardia with a QS pattern in lead V5 V6, 2 3 and aVF. Features suggesting old anterolateral and inferior wall WI. Nonspecific T wave changes in the other leads.. At the baseline, the patient's blood pressure was 131/84 mm Hg with a heart rate of 105. The patient exercised for 3 minutes and 46 seconds on a standard [place] protocol. Patient attained a maximum heart rate of 131 beats per minute(87% of the maximum predicted heart rate) with a blood pressure at the peak exercise of 158/80 mm Hg. The EKG at the peak exercise revealed no significant changes. Patient did not have any chest pain or any significant arrhythmis with the exercise Sestamibi was injected 1 minute prior to the peak exercise During the recovery phase, there were no new changes. Blood pressure at the end of the recovery phase was 149/83 mm Hg with a heart rate of 110 per minute. CONCLUSION: 1. No significant EKG changes with the [treadmill exercise 2. No exercise-induced chest pain or cardiac arrhythmia 3. Impaired impaired exercise tolerance, attained a maximum of 7.0 METs 4. Sestamibi/Sestamibi perfusion results pending; see separate report. Electronically Signed On 09-09-2024 06:00:26 GROUP COUNSELOR by Agnes Ramos M.D. [email or web address]
[2024-09-03 07:53] VITALS: BMI 27.9
--- NOTE | 2024-09-03 07:54 | NMCV_ITS ---
NM danny perf SPECT r/s* [id number] Lyle Biswas Age: 69 Gender: M : 1955 Exam Date: 09/03/2024 07:54 Ordering Phys: Kamla Marshall MD ([email or web address]) Technologist: EDWIN Stallworth Exam Location: [facility] Indications: cp STRESS TEST [facility] IMAGE PROTOCOL Rest/Stress 1 Exercise Day Radiopharmaceutical Dose (mCi) Administration Site Administered by Rest: Tc-99m 10.7 IV EDWIN Stallworth Sestamibi Stress:Tc-99m 32.9 IV Georgette Monaco BUSINESS INSTRUCTOR Sestamibi Rest: 03-Sep-2024 60 Discovery 630 Stress: 03-Sep-2024 15 Discovery 630 Radiopharmaceutical was injected at 85 % maximum heart rate. Images obtained in supine and prone position. SPECT RESULTS Technical Quality: Good Raw Data Analysis: Normal Image Corrections: No attenuation or motion correction applied Summed Stress Score: 9 Summed Rest Score: 9 Summed Difference Score: 1 PERFUSION FINDINGS Moderate area of moderate to severely decreased tracer uptake involving the basal and mid inferior and inferolateral segments. No significant reversibility was noted in the segments. FUNCTIONAL RESULTS (calculated via Gated SPECT) Stress Image LV EF (%): 48 Stress EDV (mL):80 TID: 0.8 Stress ESV (mL):42 FUNCTIONAL FINDINGS: Segmental wall motion analysis revealing mild hypokinesia of the mid and apical anterior and septal segments. IMPRESSIONS 1. Myocardial perfusion imaging revealing moderate area of persistent decreased tracer uptake involving the inferior and inferolateral regions suggesting myocardial scarring in the distribution of the left circumflex artery/right coronary artery 2. Slightly diminished LV ejection fraction of 48%. 3. LV wall motion analysis revealing mild hypokinesia of the mid and apical anterior and septal segments 4. Near normal LV volume No significant coronary ischemia, based on the above findings Dr Agnes Ramos MD FAC (Electronically Signed) Final Date: 04 September 2024 13:48 S
[2024-09-03 09:54] VITALS: BP 112/68; PULSE 108
== END 2024-09-03 07:27 | disposition home or self-care (01) ==
LOC: CDL 07:27
PROVIDERS: PCP Electrodiagnostic Medicine; Visit Provider Internal Medicine Cardiovascular Disease
DX: R07.9 Chest pain, unspecified (principal); R93.1 Abnormal findings on diagnostic imaging of heart and coronary circulation
CPT/HCPCS: 36415; 78452; 93017; A9500

== ENCOUNTER 2024-10-10 09:55 | Outpatient (CLI) | payer BC, SELFPAY ==
--- NOTE | 2024-10-10 10:15 | MR_ITS ---
WS: [id number] MRI HEAD WITH CONTRAST TECHNIQUE: Sagittal T1, T2 axial, T2 axial FLAIR, axial susceptibility weighted imaging, axial diffusion weighted images, and coronal T2 images were obtained. Pre and post-T1 axial and post T1 coronal images. ADC and FSPGR images. CLINICAL INFORMATION: G04.90 - Encephalitis and encephalomyelitis, unspecified COMPARISON: MRI 2019 FINDINGS: No evidence of restricted diffusion to suggest acute ischemia. Ventricular system and basal cisterns are patent. Mild small vessel changes. Moderate parenchymal volume loss. Small vessel changes in the jalen. Normal vascular flow voids at the skull base. No extra-axial fluid collections. No evidence of mass or mass effect. Paranasal sinuses are well aerated. Hypoplastic LEFT maxillary sinus. Mastoid air cells are well aerated. No hemosiderin on susceptibility-weighted images. Normal optic chiasm and pituitary infundibulum. Mild symmetric atrophy temporal lobes and hippocampal formations. No abnormal gadolinium enhancement. Normal dural venous sinuses. MR/MR head wo/w con [id number] IMPRESSION: 1. No evidence of restricted diffusion to suggest acute ischemia. 2. Mild small vessel changes with moderate parenchymal volume loss slightly pr ogressed compared to 2019 3. No hemosiderin. 4. No abnormal gadolinium enhancement. 5. Mild symmetric atrophy temporal lobes and hippocampal formations. 6. Normal dural venous sinuses.
[2024-10-10] MEDS: gadobenate dimeglumine 20 mL vial 19 ML IV (10:50)
== END 2024-10-10 09:56 | disposition home or self-care (01) ==
PROVIDERS: PCP Electrodiagnostic Medicine; Visit Provider Psychiatry & Neurology Neurology
DX: G04.90 Encephalitis and encephalomyelitis, unspecified (principal); R93.0 Abnormal findings on diagnostic imaging of skull and head, not elsewhere classified; G31.89 Other specified degenerative diseases of nervous system
CPT/HCPCS: 70553